=== PATIENT | male | born 1995 | race Caucasian/White ===

== ENCOUNTER 2016-11-05 23:07 | Emergency (ER) | payer MEDICAID ==
[2016-11-05 23:36] VITALS: BP 125/90
[2016-11-05] MEDS ORDERED: Bacitracin Oint 1 GM U/D Packet TOP ONE (23:46)
[2016-11-05] MEDS ORDERED: Bacitracin/Neomycin/Polymyxin B Oint 0.9 GM U/D Packet ONE (23:47)
--- NOTE | 2016-11-06 09:57 | ER ---
HPI: A 21-year-old male here with complaints of cutting his left index finger while he was closing a window at home. He was pushing on the window and the window broke. The patient states that they had held pressure to the area to help stop the bleeding and after a couple of minutes, it seemed to help. He states that the finger still works. There is a little tingling on the thumb side of the index finger that he has noticed. CURRENT MEDICATIONS: None. ALLERGIES: NONE. OBJECTIVE: GENERAL APPEARANCE: The patient is awake and alert. No obvious distress. VITAL SIGNS: Reviewed. Blood pressure 125/90, he is afebrile. Examining the left index finger reveals a laceration at the proximal end of the finger that goes into the subcu tissues. The patient has full flexion and extension capability of the finger, and he can press down against resistance with good strength as well as extend against resistance well. The laceration is fairly jagged and is about a 3.5 cm in length. DIAGNOSIS: Laceration to left index finger. TREATMENT PLAN: The site was cleansed with a Betadine solution after which 1% lidocaine was injected locally for anesthesia. I cleansed the area once again, then a sterile field was obtained, and I repaired the wound with suturing. It required 8 sutures using 5-0 Ethilon. The patient tolerated the procedure well. Post care instructions, the site was cleansed once again by nursing staff after which a pressure dressing was applied. He is to keep the initial dressing on for at least 24 hours unless it soaks through or becomes soiled. If it stays clean and dry, he can keep it on for up to 2 days, after which he should change to a small gauze dressing or a Band-Aid keeping it covered for another couple of days. He is to monitor for infection and [id number] medications are to be used for pain control as needed. The patient is not currently working. I advised the patient that sutures should remain in for 10 days, after which he should come into the clinic and have them removed. Antibiotic ointment was also used when the dressing was applied. The patient has no further questions. ANGELLA/JUNE /[id number]
== END 2016-11-05 23:59 | disposition home or self-care (01) ==
LOC: LB.ED 23:07
DX: S61.211A Laceration without foreign body of left index finger without damage to nail, initial encounter (principal); W45.8XXA Other foreign body or object entering through skin, initial encounter; Y93.89 Activity, other specified; Y92.009 Unspecified place in unspecified non-institutional (private) residence as the place of occurrence of the external cause
CPT/HCPCS: 12002; 99282-25

== ENCOUNTER → 2022-01-22 | Emergency (ER) | payer MEDICAID | LOC: LB.ED 08:31 | DX: K04.7 Periapical abscess without sinus (principal) | CPT/HCPCS: 96372; 99281; 99282 ==